=== PATIENT | female | born 1965 | race African-American/Black ===

== ENCOUNTER 2017-08-26 14:25 | Emergency (ER) | payer SELFPAY ==
[2017-08-26 14:31] VITALS: BP 124/76
[2017-08-26] MEDS ORDERED: Paliperidone SUSTENNA* 117 MG/0.75 ML IM ONE (16:29)
[2017-08-26] MEDS ORDERED: Paliperidone SUSTENNA* 156 MG/1 ML IM ONE (17:00)
--- NOTE | 2017-08-26 17:22 | ED ---
Psychiatric Complaint - HPI Summary HPI Summary: Patient presents to the ED with request for an Invega sustenna IM injection. Last dose on 07/22/17 and is to be receiving the medication every month. She is a current patient of [facility]. She was originally prescribed the medication at [facility] in [place] by a psychiatrist. She states last month was the first month she received the IM injection and had no adverse reactions to the medication. Today, she denies SI/HI. Denies any depressive thoughts. She states the medication has been working well. [facility] program called and confirmed she was sent here by Teressa - monik MATERIALS COORDINATOR. She was called and did not answer, however spoke with the construction secretary of [facility] who confirmed she was sent here for such. [facility] was called and stated they had never had her there as an inpatient, but potentially an outpatient MD would have originally prescribed the medication. Denies any pain or other concerns at this time. - History Of Current Complaint Chief Complaint: EDGeneral Time Seen by Provider: 08/26/17 14:33 Hx Obtained From: Patient ?: No Onset/Duration: Sudden Onset Timing: Constant Severity Initially: Mild Severity Currently: Mild Character: Depressed Aggravating Factor(s): Nothing Alleviating Factor(s): Nothing Associated Signs And Symptoms: Positive: Negative Related History: Positive For: Prior Psychiatric Issues - anti-psychotic/anti- depressant - Allergies/Home Medications Allergies/Adverse Reactions: Allergies Allergy/AdvReac Type Severity Reaction Status Date / Time Acetaminophen [From Tylenol] Allergy Hives/Diff. Verified 08/26/17 16:34 Breathing/I tching PMH/Surg Hx/FS Hx/Imm Hx Previously Healthy: Yes - Immunization History Hx Pertussis Vaccination: No Immunizations Up to Date: Unable to Obtain/Confirm Infectious Disease History: No Infectious Disease History: Denies: Traveled Outside the [place] in Last 30 Days - Social History Occupation: Unemployed Lives: Alone Alcohol Use: none since 11/2016 Alcohol Amount: in recovery since november 2016 Hx Substance Use: No Substance Use Type: Reports: Heroin Substance Use Comment - Amount & Last Used: in recovery program since 11/2016 Hx Tobacco Use: No Smoking Status (MU): Former Smoker Review of Systems Constitutional: Negative Eyes: Negative Cardiovascular: Negative Respiratory: Negative Genitourinary: Negative Positive: no symptoms reported, see HPI Musculoskeletal: Negative Neurological: Negative Psychological: Normal All Other Systems Reviewed And Are Negative: Yes Physical Exam Triage Information Reviewed: Yes Vital Signs On Initial Exam: Initial Vitals Temp Pulse Resp BP Pulse Ox 97.4 F 102 20 124/76 100 08/26/17 14:28 08/26/17 14:28 08/26/17 14:28 08/26/17 14:28 08/26/17 14:28 Vital Signs Reviewed: Yes Appearance: Positive: Well-Appearing, Well-Nourished Skin: Positive: Warm, Skin Color Reflects Adequate Perfusion Head/Face: Positive: Normal Head/Face Inspection Eyes: Positive: EOMI, LESA Neck: Positive: Supple, Nontender, No Lymphadenopathy Respiratory/Lung Sounds: Positive: Clear to Auscultation, Breath Sounds Present Cardiovascular: Positive: Normal, RRR, Pulses are Symmetrical in both Upper and Lower Extremities Musculoskeletal: Positive: Normal, Strength/ROM Intact Neurological: Positive: Alert, Oriented to Person Place, Time, Speech Normal Psychiatric: Positive: Normal AVPU Assessment: Alert - Matteson Coma Scale Coma Scale Total: 15 Diagnostics - Vital Signs Vital Signs Temp Pulse Resp BP Pulse Ox 08/26/17 14:28 97.4 F 102 20 124/76 100 - Laboratory Lab Statement: Any lab studies that have been ordered have been reviewed, and results considered in the medical decision making process. Course/Dx - Course Course Of Treatment: Patient presents for an invega sustenna injection: anti- psychotic/anti-depressant. She notes to a monthly dose started last month. Currently we have 156mg and 234mg. She is given the lower dose. She states the medication has been working well. [facility] program called and confirmed she was sent here by Teressa - the MATERIALS COORDINATOR. She was called and did not answer, however spoke with the construction secretary of [facility] who confirmed she was sent here for such. [facility] was called and stated they had never had her there as an inpatient, but potentially an outpatient MD would have originally prescribed the medication. Denies any pain or other concerns at this time. - Differential Dx/Clinical Impression Provider Diagnosis: Medication administered Discharge - Discharge Plan Condition: Stable Disposition: HOME Patient Education Materials: Paliperidone (By injection) Referrals: No Primary Care Phys,NOPCP [Primary Care Provider] - Additional Instructions: Please follow up with your PCP about further injections. If you develop any symptoms, return to the ED immediately
== END 2017-08-26 17:00 | disposition home or self-care (01) ==
LOC: ED 14:25
DX: F32.9 Major depressive disorder, single episode, unspecified (principal); Z02.89 Encounter for other administrative examinations
CPT/HCPCS: 96372; 99281; J2426

== ENCOUNTER 2017-09-19 14:37 | Inpatient (IN) | payer MEDICAID ==
[2017-09-19 15:57] LABS: Urine Bacteria Absent (Absent); Urine Bilirubin Negative (Negative); Urine Glucose Negative (Negative); Urine Nitrite Negative (Negative)
[2017-09-19 16:32] LABS: Hematocrit 36 % (35-47); Hemoglobin 12.1 g/dl (12.0-16.0); Mean Corpuscular HGB Conc 33 g/dl (31-36); Mean Corpuscular Hemoglobin 27 pg (27-31); Mean Corpuscular Volume 81 fL (80-97); Mean Platelet Volume 8 um3 (7.4-10.4); Red Blood Count 4.51 10^6/ul (4.0-5.4); Red Cell Distribution Width 14 % (10.5-15); White Blood Count 6.2 10^3/ul (3.5-10.8)
[2017-09-19 16:47] LABS: ALT 24 U/L (7-52); AST 28 U/L (13-39); Albumin 4.2 g/dL (3.2-5.2); Alkaline Phosphatase 71 U/L (34-104); Anion Gap 6 mmol/L (2-11); BUN/Creatinine Ratio 13.6 (8-20); Blood Urea Nitrogen 11 mg/dL (6-24); CO2 Carbon Dioxide 29 mmol/L (22-32); Calcium 9.8 mg/dL (8.6-10.3); Chloride 99 mmol/L (101-111); EGFR African American 94.8 (>60); EGFR Non-African American 73.7 (>60); Globulin 3.5 g/dL (2-4); Glucose 94 mg/dL (70-100); Sodium 134 mmol/L (133-145); Total Protein 7.7 g/dL (6.4-8.9)
[2017-09-19 17:06] LABS: Acetaminophen < 15 mcg/mL; Alcohol < 10 mg/dL (<10); Salicylate < 2.50 mg/dL (<30)
[2017-09-19 17:11] LABS: Benzodiazepine Urine Screen None Detected (None Detect)
[2017-09-19 17:19] LABS: TSH (Thyroid Stimulating Horm) 0.83 mcIU/mL (0.34-5.60)
--- NOTE | 2017-09-19 21:55 | ED ---
Em Padilla Alfonso, scribed for Jonathan Dasilva MD on 09/19/17 at 1518 . Psychiatric Complaint - HPI Summary HPI Summary: This patient is a 52 F year old F BIBA to [facility] with a chief complaint of SI since 3 days ago. Pt states she tried to cut her fingers and wrists with scissors recently. Symptoms alleviated by nothing. Patient reports insomnia, loss of appetite, auditory hallucinations, and depression. Patient denies any recent substance abuse. She is in rehab for prior heroin abuse. - History Of Current Complaint Time Seen by Provider: 09/19/17 15:06 Hx Obtained From: Patient Timing: Constant Character: Depressed Alleviating Factor(s): Nothing Associated Signs And Symptoms: Positive: Hallucinating - auditory Related History: Positive For: Drug Abuse Counseling - in rehab Has Suicidal: Reports: Thoughts, Demonstrates Gesture, Has Prior Attempt(s) - Allergies/Home Medications Allergies/Adverse Reactions: Allergies Allergy/AdvReac Type Severity Reaction Status Date / Time Acetaminophen [From Tylenol] Allergy Hives/Diff. Verified 08/26/17 16:34 Breathing/I tching Home Medications: Home Medications Buprenorphine HCl-Naloxone HCl [Suboxone 4-1 mg] 1 each PO DAILY 09/19/17 [ History Confirmed 09/19/17] Mirtazapine [Mirtazapine Odt] 30 mg PO BEDTIME 09/19/17 [History Confirmed 09/19] Paliperidone SUSTENNA* [Invega Sustenna*] 234 mg IM Q30D 09/19/17 [History Confirmed 09/19/17] Risperidone [Risperidone ODT-] 1 mg PO BEDTIME 09/19/17 [History Confirmed 09/19] Sertraline HCl [Zoloft] 150 mg PO DAILY 09/19/17 [History Confirmed 09/19/17] busPIRone TAB* [Buspar TAB*] 5 mg PO BID 09/19/17 [History Confirmed 09/19/17] diPHENhydraMINE PO* [Benadryl PO 50 MG CAP*] 50 mg PO Q6HR PRN 09/19/17 [ History Confirmed 09/19/17] hydrOXYzine HCL TAB* [Atarax TAB 50 MG *] 50 mg PO Q6HR PRN 09/19/17 [History Confirmed 09/19/17] PMH/Surg Hx/FS Hx/Imm Hx Previously Healthy: No Cardiovascular History: Reports: Other Cardiovascular Problems/Disorders - Murmur, prolasped valve Psychiatric History: Reports: Hx Depression - Family History Known Family History: Positive: Cardiac Disease, Hypertension - Social History Occupation: Unemployed Alcohol Use: none since 11/2016 Alcohol Amount: in recovery since november 2016 Hx Substance Use: No Substance Use Type: Reports: Heroin Substance Use Comment - Amount & Last Used: in recovery program since 11/2016 Hx Tobacco Use: No Smoking Status (MU): Former Smoker Review of Systems Constitutional: Other - Insomnia Positive: Other - Loss of appetite Positive: Depressed, Other - Auditory hallucinations, SI All Other Systems Reviewed And Are Negative: Yes Physical Exam Triage Information Reviewed: Yes Vital Signs On Initial Exam: Initial Vitals Temp Pulse Resp BP Pulse Ox 98.7 F 102 18 116/72 100 09/19/17 15:25 09/19/17 15:25 09/19/17 15:25 09/19/17 15:25 09/19/17 15:25 Vital Signs Reviewed: Yes Appearance: Positive: Well-Appearing, No Pain Distress Skin: Positive: Skin Color Reflects Adequate Perfusion Head/Face: Positive: Normal Head/Face Inspection Eyes: Positive: EOMI ENT: Positive: Normal ENT inspection Neck: Positive: Nontender, No Lymphadenopathy Respiratory/Lung Sounds: Positive: Clear to Auscultation, Breath Sounds Present Cardiovascular: Positive: RRR. Negative: Murmur Abdomen Description: Positive: Nontender Musculoskeletal: Positive: Strength/ROM Intact Neurological: Positive: Sensory/Motor Intact, Alert, Oriented to Person Place, Time, CN Intact II-III, Speech Normal Psychiatric: Positive: Depressed - Irvin Coma Scale Best Eye Response: 4 - Spontaneous Best Motor Response: 6 - Obeys Commands Best Verbal Response: 5 - Oriented Diagnostics - Vital Signs Vital Signs Temp Pulse Resp BP Pulse Ox 09/19/17 15:25 98.7 F 102 18 116/72 100 - Laboratory Lab Results: Lab Results 09/19/17 Range/Units 15:05 Urine Color Straw Urine Appearance Clear Urine pH 7.0 (5-9) Ur Specific [place] 1.006 L (1.010-1.030) Urine Protein Negative (Negative) Urine Ketones Negative (Negative) Urine Blood 1+ H (Negative) Urine Nitrate Negative (Negative) Urine Bilirubin Negative (Negative) Urine Urobilinogen Negative (Negative) Ur Leukocyte Esterase Negative (Negative) Urine WBC (Auto) Trace(0-5/hpf) (Absent) Urine RBC (Auto) Trace(0-2/hpf) (Absent) Ur Squamous Epith Cells Present H (Absent) Urine Bacteria Absent (Absent) Urine Glucose Negative (Negative) Result Diagrams: 09/19/17 16:15 09/19/17 16:15 Lab Statement: Any lab studies that have been ordered have been reviewed, and results considered in the medical decision making process. - EKG 16:43 Cardiac Rate: NL, Bradycardia EKG Rhythm: Sinus Rhythm - 92 BPM EKG Interpretation: Normal DC, QRS, QT, No STEMI Course/Dx - Course Course Of Treatment: 52 yr old with SI, and will be admitted for further management by psychiatry. - Differential Dx/Clinical Impression Provider Diagnosis: Suicidal ideation Discharge - Discharge Plan Condition: Fair Disposition: [place]ATR[facility] [place]AC[place] [place]: No Primary Care Phys,NOPCP [Medical Doctor] - The documentation as recorded by the Em birch Alfonso accurately reflects the service I personally performed and the decisions made by Brown dueñas Walter, MD.
[2017-09-20] MEDS: Mirtazapine TAB* 15 MG PO SCH (21:16)
[2017-09-20] MEDS: busPIRone TAB* 5 MG PO SCH (21:40)
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
[2017-09-21] MEDS: Buprenorphine/Naloxone 8-2 MG SL TAB* 1 TAB PO SCH (09:12)
[2017-09-21] MEDS: busPIRone TAB* 5 MG PO SCH ×2 (09:13→20:08)
[2017-09-21] MEDS: Sertraline* 50 MG TAB PO SCH (09:13)
[2017-09-21] MEDS: hydrOXYzine HCL TAB* 50 MG PO PRN (20:08)
[2017-09-21] MEDS: Mirtazapine TAB* 15 MG PO SCH (20:08)
[2017-09-22] MEDS ORDERED: Mouth Piece, Nicotine* 1 EACH CARTRIDGE INH PRN (04:30)
[2017-09-22] MEDS: Buprenorphine/Naloxone 8-2 MG SL TAB* 1 TAB PO SCH (08:39)
[2017-09-22] MEDS: busPIRone TAB* 5 MG PO SCH ×2 (08:39→20:10)
[2017-09-22] MEDS: Sertraline* 50 MG TAB PO SCH (08:40)
--- NOTE | 2017-09-22 14:05 | PN ---
Subjective - Subjective Service Type: [id number] Hosp care 15 min low complexity Subjective: Patient noted to be visible in the milieu, isolative, but participates in groups and milieu activities. Patient reports ongoing depressed mood since admission, but she reports feeling safe on the unit. Patient reports primary trigger of her depressed mood is the of her "son's father" who she was with for 32yrs. Patient reports he passed in 03/2016. Patient reports relapsing on opiates since his passing. She transferred symptomatic from the [facility] program where she'd been since 07/2017. Patient reports she has been sober since 11/2016. Patient is in Suboxone therapy. She reports running out of meds 2 weeks ago in the [facility] program as her provider failed to get her Rx refilled as requested by [facility] staff. Patient reports worsening depressive symptoms since, now with associated AHs telling her to cut herself. Patient reports ongoing commanding AHs. She denies SI/HI and VH. Patient reports ongoing poor sleep. Appetite is reported to be wnl. Objective - Appearance Appearance: Thin Framed Dysmorphic Features: No Hygiene: Normal Grooming: Fairly Well Kept - Behavior Psychomotor Activities: Normal Exhibits Abnormal Movement: No - Attitude and Relatedness Attitude and Relatedness: Cooperative Eye Contact: Fair - Speech Quality: Unpressured Latencies: Normal Quantity: Appropriate - Mood Patient's Decription of Mood: "Anxious" - Affect Observed Affect: Depressed Affect Consistent with: Dysphoria - Thought Process Patient's Thought Process: Coherent Thought Content: Yes Passive Wish, No Suicidal Planning, No Homicidal Ideation, No Paranoid Ideation - Sensorium Experiencing Hallucinations: No, Sensorium is Clear Type of Hallucinations: Visual: No, Auditory: Yes - female voices telling her to cut herself, Command: Yes - female voices telling her to cut herself - Level of Consciousness Orientation: Yes Intact, Yes Orientated to Time, Yes Orientated to Place, Yes Orientated to Person - Impulse Control Impulse Control: Intact - Insight and Judgement Insight and Judgement: Fair - Group Participation Particating in Group Activities: Yes - Medication Management Medication Management Adherence: Yes Assessment - Assessment Merits Inpatient Hospitalization: For Immediate Safety, For Stabilization Inpatient DSM-IV Dx: 1. MDD, R, S w/PFs. 2. Opioid use d/o in sustained remission, in Suboxone Tx Plan - Plan Treatment Plan: Name: CHECO SWIFT Birthdate: 1965 [id number] 1. Continue admission to [facility] for safety and symptom mx. 2. Will continue re-started home med regimen. 3. Will re-start Risperdal at 1mg po qhs for psychosis/anxiety/insomnia not re- started on admission. 4. Obtain collateral information from outpt providers. 5. Patient to participate in milieu activities and groups. Continued Medication Management: Continue Outpt Medication Medications: Current Medications Buprenorphine/Naloxone (Suboxone 8-2 Mg Sl Tab*) 0.5 tab.sl PO DAILY [facility] Last Admin: 09/22/17 08:39 Dose: 0.5 tab.sl Buspirone HCl (Buspar Tab*) 5 mg PO BID [facility] Last Admin: 09/22/17 08:39 Dose: 5 mg Device (Nicotine Mouth Piece*) 1 each INH .USE WITH CARTRIDGE PRN PRN Reason: NICOTINE CRAVINGS Hydroxyzine HCl (Atarax Tab*) 50 mg PO Q6H PRN PRN Reason: AGITATION Last Admin: 09/21/17 20:08 Dose: 50 mg Mirtazapine (Remeron Tab*) 30 mg PO BEDTIME [facility] Last Admin: 09/21/17 20:08 Dose: 30 mg Nicotine (Nicotine Inhaler*) 10 mg INH Q2H PRN PRN Reason: NICOTINE CRAVINGS Nicotine Polacrilex (Nicotine Gum*) 2 mg PO Q2H PRN PRN Reason: NICOTINE CRAVINGS Paliperidone Palmitate (Invega Sustenna*) 234 mg IM Q30D [facility] Sertraline HCl (Zoloft*) 150 mg PO DAILY [facility] Last Admin: 09/22/17 08:40 Dose: 150 mg - Discharge Plan Discharge Plan: [facility]
[2017-09-22] MEDS: Nicotine Inhaler* 10 MG AMP INH PRN (18:34)
[2017-09-22] MEDS: Nicotine GUM* 2 MG PO PRN (18:35)
[2017-09-22] MEDS: Mirtazapine TAB* 15 MG PO SCH (20:10)
[2017-09-22] MEDS: risperiDONE TAB* 2 MG PO SCH (20:10)
[2017-09-22] MEDS: hydrOXYzine HCL TAB* 50 MG PO PRN (20:14)
[2017-09-23] MEDS: Sertraline* 50 MG TAB PO SCH (09:07)
[2017-09-23] MEDS: Buprenorphine/Naloxone 8-2 MG SL TAB* 1 TAB PO SCH (09:08)
[2017-09-23] MEDS: busPIRone TAB* 5 MG PO SCH ×2 (09:08→20:09)
[2017-09-23 09:21] LABS: HDL Cholesterol 48.3 mg/dL
--- NOTE | 2017-09-23 14:57 | PN ---
Subjective - Subjective Service Type: [id number] Hosp care 15 min low complexity Subjective: Patient noted to be visible in the milieu, social, pleasant, and participating in groups and milieu activities. Patient reports his mood as "getting better". Patient is more full in affect. She continues to display PMR. Patient' s TP is linear and goal directed. Patient's affect is full and eye contact is wnl. Patient noted by staff to have been in behavioral control. Patient reports improved sleep. Patient has been med compliant and she denies med s/e's. She reports no SI/HI or AH/VH. She reports fair appetite. Patient aware [facility] is holding her bed. Objective - Appearance Appearance: Well Developed/Nourished Dysmorphic Features: No Hygiene: Normal Grooming: Well Kept - Behavior Psychomotor Activities: Abnormal-Decreased Exhibits Abnormal Movement: No - Attitude and Relatedness Attitude and Relatedness: Cooperative Eye Contact: Fair - Speech Quality: Unpressured Latencies: Normal Quantity: Terse - Mood Patient's Decription of Mood: "getting better" - Affect Observed Affect: Depressed Affect Consistent with: Dysphoria - Thought Process Patient's Thought Process: Coherent Thought Content: No Passive Wish, No Suicidal Planning, No Homicidal Ideation, No Paranoid Ideation - Sensorium Experiencing Hallucinations: No, Sensorium is Clear Type of Hallucinations: Visual: No, Auditory: No, Command: No - Level of Consciousness Level of Consciousness: Alert Orientation: Yes Intact, Yes Orientated to Time, Yes Orientated to Place, Yes Orientated to Person - Impulse Control Impulse Control: Intact - Insight and Judgement Insight and Judgement: Fair - Group Participation Particating in Group Activities: Yes - Medication Management Medication Management Adherence: Yes Assessment - Assessment Merits Inpatient Hospitalization: For Immediate Safety, For Stabilization Inpatient DSM-IV Dx: 1. MDD, R, S w/PFs. 2. Opioid use d/o in sustained remission, in Suboxone Tx Plan - Plan Treatment Plan: Name: CHECO SWIFT Birthdate: 1965 [id number] 1. Continue admission to [facility] for safety and symptom mx. 2. Will continue re-started home med regimen. 3. Will re-start Risperdal at 1mg po qhs for psychosis/anxiety/insomnia not re- started on admission. 4. Obtain collateral information from outpt MH providers. 5. Patient reports plan to return to complete [facility] program. 6. Patient to participate in milieu activities and groups. Continued Medication Management: Different Medication Medications: Current Medications Buprenorphine/Naloxone (Suboxone 8-2 Mg Sl Tab*) 0.5 tab.sl PO DAILY [facility] Last Admin: 09/23/17 09:08 Dose: 0.5 tab.sl Buspirone HCl (Buspar Tab*) 5 mg PO BID [facility] Last Admin: 09/23/17 09:08 Dose: 5 mg Device (Nicotine Mouth Piece*) 1 each INH .USE WITH CARTRIDGE PRN PRN Reason: NICOTINE CRAVINGS Last Admin: 09/22/17 18:33 Dose: 1 each Hydroxyzine HCl (Atarax Tab*) 50 mg PO Q6H PRN PRN Reason: AGITATION Last Admin: 09/22/17 20:14 Dose: 50 mg Mirtazapine (Remeron Tab*) 30 mg PO BEDTIME [facility] Last Admin: 09/22/17 20:10 Dose: 30 mg Nicotine (Nicotine Inhaler*) 10 mg INH Q2H PRN PRN Reason: NICOTINE CRAVINGS Last Admin: 09/22/17 18:34 Dose: 10 mg Nicotine Polacrilex (Nicotine Gum*) 2 mg PO Q2H PRN PRN Reason: NICOTINE CRAVINGS Last Admin: 09/22/17 18:35 Dose: 2 mg Paliperidone Palmitate (Invega Sustenna*) 234 mg IM Q30D [facility] Risperidone (Risperdal*) 2 mg PO BEDTIME [facility] Last Admin: 09/22/17 20:10 Dose: 2 mg Sertraline HCl (Zoloft*) 150 mg PO DAILY [facility] Last Admin: 09/23/17 09:07 Dose: 150 mg - Discharge Plan Discharge Plan[facility]
[2017-09-23] MEDS: risperiDONE TAB* 2 MG PO SCH (20:08)
[2017-09-23] MEDS: Mirtazapine TAB* 15 MG PO SCH (20:09)
[2017-09-23] MEDS: Nicotine GUM* 2 MG PO PRN (20:10)
[2017-09-23] MEDS: Nicotine Inhaler* 10 MG AMP INH PRN (20:10)
[2017-09-23] MEDS: hydrOXYzine HCL TAB* 50 MG PO PRN (20:13)
[2017-09-24] MEDS: Sertraline* 50 MG TAB PO SCH (08:35)
[2017-09-24] MEDS: busPIRone TAB* 5 MG PO SCH ×2 (08:35→20:41)
[2017-09-24] MEDS: Buprenorphine/Naloxone 8-2 MG SL TAB* 1 TAB PO SCH (08:57)
[2017-09-24] MEDS: hydrOXYzine HCL TAB* 50 MG PO PRN ×2 (09:14→20:42)
--- NOTE | 2017-09-24 14:08 | PN ---
Subjective - Subjective Service Type: [id number] Hosp care 15 min low complexity Subjective: Patient noted to be visible in the milieu, social, pleasant, and participating in groups and milieu activities. Patient reports her mood as "good". Patient no longer displays PMR, affect is full, and her TP is linear and goal directed. Patient noted by staff to have been in behavioral control. Patient reports good sleep. Patient has been med compliant and she denies med s/e's. She reports no SI/HI or AH/VH. She reports fair appetite. Patient aware [facility] is holding her bed. Objective - Appearance Appearance: Well Developed/Nourished Dysmorphic Features: No Hygiene: Normal Grooming: Well Kept - Behavior Psychomotor Activities: Normal Exhibits Abnormal Movement: No - Attitude and Relatedness Attitude and Relatedness: Cooperative Eye Contact: Good - Speech Quality: Unpressured Latencies: Normal Quantity: Appropriate - Mood Patient's Decription of Mood: "Good" - Affect Observed Affect: Good Affect Consistent with: Euthymia - Thought Process Patient's Thought Process: Coherent Thought Content: No Passive Wish, No Suicidal Planning, No Homicidal Ideation, No Paranoid Ideation - Sensorium Experiencing Hallucinations: No, Sensorium is Clear Type of Hallucinations: Visual: No, Auditory: No, Command: No - Level of Consciousness Level of Consciousness: Alert Orientation: Yes Intact, Yes Orientated to Time, Yes Orientated to Place, Yes Orientated to Person - Impulse Control Impulse Control: Intact - Insight and Judgement Insight and Judgement: Fair - Group Participation Particating in Group Activities: Yes - Medication Management Medication Management Adherence: Yes Assessment - Assessment Merits Inpatient Hospitalization: For Immediate Safety, For Stabilization Inpatient DSM-IV Dx: 1. MDD, R, S w/PFs. 2. Opioid use d/o in sustained remission, in Suboxone Tx Plan - Plan Treatment Plan: Name: CHECO SWIFT Birthdate: 1965 [id number] 1. Continue admission to [facility] for safety and symptom mx. 2. Continue re-started home med regimen. 3. Continue Risperdal at 1mg po qhs for psychosis/anxiety/insomnia. 4. Patient's Invega Sustenna 234mg IM injection due on the is ordered. 5. Obtain collateral information from outpt MH providers. 6. Patient reports plan to return to complete [employer] program. 7. Patient to participate in milieu activities and groups. Continued Medication Management: Different Medication Medications: Current Medications Buprenorphine/Naloxone (Suboxone 8-2 Mg Sl Tab*) 0.5 tab.sl PO DAILY [facility] Last Admin: 09/24/17 08:57 Dose: 0.5 tab.sl Buspirone HCl (Buspar Tab*) 5 mg PO BID [facility] Last Admin: 09/24/17 08:35 Dose: 5 mg Device (Nicotine Mouth Piece*) 1 each INH .USE WITH CARTRIDGE PRN PRN Reason: NICOTINE CRAVINGS Last Admin: 09/22/17 18:33 Dose: 1 each Hydroxyzine HCl (Atarax Tab*) 50 mg PO Q6H PRN PRN Reason: AGITATION Last Admin: 09/24/17 09:14 Dose: 50 mg Mirtazapine (Remeron Tab*) 30 mg PO BEDTIME [facility] Last Admin: 09/23/17 20:09 Dose: 30 mg Nicotine (Nicotine Inhaler*) 10 mg INH Q2H PRN PRN Reason: NICOTINE CRAVINGS Last Admin: 09/23/17 20:10 Dose: 10 mg Nicotine Polacrilex (Nicotine Gum*) 2 mg PO Q2H PRN PRN Reason: NICOTINE CRAVINGS Last Admin: 09/23/17 20:10 Dose: 2 mg Paliperidone Palmitate (Invega Sustenna*) 234 mg IM Q30D [facility] Risperidone (Risperdal*) 2 mg PO BEDTIME [facility] Last Admin: 09/23/17 20:08 Dose: 2 mg Sertraline HCl (Zoloft*) 150 mg PO DAILY [facility] Last Admin: 09/24/17 08:35 Dose: 150 mg - Discharge Plan Discharge Plan: Drug[facility]Alcohol [facility]hab [facility]
[2017-09-24] MEDS: risperiDONE TAB* 2 MG PO SCH (20:41)
[2017-09-24] MEDS: Mirtazapine TAB* 15 MG PO SCH (20:41)
[2017-09-25] MEDS: Sertraline* 50 MG TAB PO SCH (09:19)
[2017-09-25] MEDS: busPIRone TAB* 5 MG PO SCH ×2 (09:19→20:00)
[2017-09-25] MEDS: Buprenorphine/Naloxone 8-2 MG SL TAB* 1 TAB PO SCH (09:20)
[2017-09-25] MEDS: hydrOXYzine HCL TAB* 50 MG PO PRN ×2 (09:20→20:01)
--- NOTE | 2017-09-25 12:15 | PN ---
Subjective - Subjective Service Type: [id number] Hosp care 15 min low complexity Subjective: Patient noted to be visible in the milieu, social, pleasant, and participating in groups and milieu activities. Patient continues to display improvement in mood, energy level, engagement in therapy, and her social interaction with staff and peers. Patient no longer displays PMR, affect is full, and her TP is linear and goal directed. Patient noted by staff to have been in behavioral control. Patient reports good sleep. Patient has been med compliant and she denies med s/ e's. She reports no SI/HI or AH/VH. She reports fair appetite. Patient aware [facility] is holding her bed. Patient will receive her scheduled Invega Sustenna 234 IM injection tomorrow. She reports feeling ready for discharge in am. Objective - Appearance Appearance: Well Developed/Nourished Dysmorphic Features: No Hygiene: Normal Grooming: Well Kept - Behavior Psychomotor Activities: Normal Exhibits Abnormal Movement: No - Attitude and Relatedness Attitude and Relatedness: Cooperative Eye Contact: Good - Speech Quality: Unpressured Latencies: Normal Quantity: Appropriate - Mood Patient's Decription of Mood: "Okay" - Affect Observed Affect: Fair Affect Consistent with: Euthymia - Thought Process Patient's Thought Process: Coherent Thought Content: No Passive Wish, No Suicidal Planning, No Homicidal Ideation, No Paranoid Ideation - Sensorium Experiencing Hallucinations: No, Sensorium is Clear Type of Hallucinations: Visual: No, Auditory: No, Command: No - Level of Consciousness Level of Consciousness: Alert Orientation: No Intact, No Orientated to Time, No Orientated to Place, No Orientated to Person - Impulse Control Impulse Control: Intact - Insight and Judgement Insight and Judgement: Fair - Group Participation Particating in Group Activities: Yes - Medication Management Medication Management Adherence: Yes Assessment - Assessment Merits Inpatient Hospitalization: For Immediate Safety, For Stabilization Inpatient DSM-IV Dx: 1. MDD, R, S w/PFs. 2. Opioid use d/o in sustained remission, in Suboxone Tx Plan - Plan Treatment Plan: Name: CHECO SWIFT Birthdate: 1965 [id number] 1. Continue admission to [facility] for safety and symptom mx. 2. Continue re-started home med regimen. 3. Continue Risperdal at 1mg po qhs for psychosis/anxiety/insomnia. 4. Patient's Invega Sustenna 234mg IM injection due on the is ordered. 5. Obtain collateral information from outpt MH providers. 6. Patient reports plan to return to complete [facility] program. 7. Patient to participate in milieu activities and groups. Continued Medication Management: Continue Outpt Medication Medications: Current Medications Buprenorphine/Naloxone (Suboxone 8-2 Mg Sl Tab*) 0.5 tab.sl PO DAILY [facility] Last Admin: 09/25/17 09:20 Dose: 0.5 tab.sl Buspirone HCl (Buspar Tab*) 5 mg PO BID [facility] Last Admin: 09/25/17 09:19 Dose: 5 mg Device (Nicotine Mouth Piece*) 1 each INH .USE WITH CARTRIDGE PRN PRN Reason: NICOTINE CRAVINGS Last Admin: 09/22/17 18:33 Dose: 1 each Hydroxyzine HCl (Atarax Tab*) 50 mg PO Q6H PRN PRN Reason: AGITATION Last Admin: 09/25/17 09:20 Dose: 50 mg Mirtazapine (Remeron Tab*) 30 mg PO BEDTIME [facility] Last Admin: 09/24/17 20:41 Dose: 30 mg Nicotine (Nicotine Inhaler*) 10 mg INH Q2H PRN PRN Reason: NICOTINE CRAVINGS Last Admin: 09/23/17 20:10 Dose: 10 mg Nicotine Polacrilex (Nicotine Gum*) 2 mg PO Q2H PRN PRN Reason: NICOTINE CRAVINGS Last Admin: 09/23/17 20:10 Dose: 2 mg Paliperidone Palmitate (Invega Sustenna*) 234 mg IM Q30D [facility] Risperidone (Risperdal*) 2 mg PO BEDTIME [facility] Last Admin: 09/24/17 20:41 Dose: 2 mg Sertraline HCl (Zoloft*) 150 mg PO DAILY [facility] Last Admin: 09/25/17 09:19 Dose: 150 mg - Discharge Plan Discharge Plan: Drug/Alcohol Rehab
[2017-09-25] MEDS: Nicotine GUM* 2 MG PO PRN (15:24)
[2017-09-25] MEDS: Nicotine Inhaler* 10 MG AMP INH PRN (15:25)
[2017-09-25] MEDS: Diclofenac Sodium EC TAB* 25 MG PO SCH (17:41)
[2017-09-25] MEDS: Mirtazapine TAB* 15 MG PO SCH (20:00)
[2017-09-25] MEDS: risperiDONE TAB* 2 MG PO SCH (20:00)
[2017-09-26] MEDS ORDERED: Paliperidone SUSTENNA* 234 MG/1.5 ML IM SCH ×2 (08:00→21:00)
[2017-09-26] MEDS: Buprenorphine/Naloxone 8-2 MG SL TAB* 1 TAB PO SCH (09:07)
[2017-09-26] MEDS: Sertraline* 50 MG TAB PO SCH (09:07)
[2017-09-26] MEDS: Diclofenac Sodium EC TAB* 25 MG PO SCH (09:08)
[2017-09-26] MEDS: busPIRone TAB* 5 MG PO SCH ×2 (09:09→20:09)
[2017-09-26] MEDS: Nicotine GUM* 2 MG PO PRN ×2 (13:57→21:37)
--- NOTE | 2017-09-26 19:07 | PN ---
Subjective - Subjective Service Type: [id number] Hosp care 15 min low complexity Subjective: [employer] Machinist met with patient during attending's absence. She presents as dysphoric with flat affect. She is attending groups and meals, otherwise primarily seclusive to herself. She reports gaining much from programming on unit and would prefer to return to [facility] on friday. Objective - Appearance Appearance: Well Developed/Nourished Dysmorphic Features: Yes Hygiene: Normal Grooming: Well Kept - Behavior Psychomotor Activities: Normal Exhibits Abnormal Movement: No - Attitude and Relatedness Attitude and Relatedness: Cooperative Eye Contact: Good - Speech Quality: Unpressured Latencies: Normal Quantity: Appropriate - Mood Patient's Decription of Mood: "Okay" - Affect Observed Affect: Good Affect Consistent with: Euthymia - Thought Process Patient's Thought Process: Coherent, Goal Directed Thought Content: No Passive Wish, No Suicidal Planning, No Homicidal Ideation, No Paranoid Ideation - Sensorium Experiencing Hallucinations: No, Sensorium is Clear Type of Hallucinations: Visual: No, Auditory: No, Command: No - Level of Consciousness Level of Consciousness: Alert Orientation: Yes Intact, Yes Orientated to Time, Yes Orientated to Place, Yes Orientated to Person - Impulse Control Impulse Control: Intact - Insight and Judgement Insight and Judgement: Fair - Group Participation Particating in Group Activities: Yes - Medication Management Medication Management Adherence: Yes Assessment - Assessment Merits Inpatient Hospitalization: For Immediate Safety, For Stabilization, Consolidate Improvements, For Discharge Planning Inpatient DSM-IV Dx: 1. MDD, R, S w/PFs. 2. Opioid use d/o in sustained remission, in Suboxone Tx Plan - Plan Treatment Plan: Name: CHECO SWIFT Birthdate: 1965 [id number] Continue acute intensive psychiatric treatment. Continue previous medications. Safety checks q30min and allow staff pass. Continued Medication Management: Continue Outpt Medication Medications: Current Medications Buprenorphine/Naloxone (Suboxone 8-2 Mg Sl Tab*) 0.5 tab.sl PO DAILY [facility] Last Admin: 09/26/17 09:07 Dose: 0.5 tab.sl Buspirone HCl (Buspar Tab*) 5 mg PO BID [facility] Last Admin: 09/26/17 09:09 Dose: 5 mg Device (Nicotine Mouth Piece*) 1 each INH .USE WITH CARTRIDGE PRN PRN Reason: NICOTINE CRAVINGS Last Admin: 09/22/17 18:33 Dose: 1 each Diclofenac Sodium (Voltaren Ec Tab*) 25 mg PO DAILY [facility] Last Admin: 09/26/17 09:08 Dose: 25 mg Hydroxyzine HCl (Atarax Tab*) 50 mg PO Q6H PRN PRN Reason: AGITATION Last Admin: 09/25/17 20:01 Dose: 50 mg Mirtazapine (Remeron Tab*) 30 mg PO BEDTIME [facility] Last Admin: 09/25/17 20:00 Dose: 30 mg Nicotine (Nicotine Inhaler*) 10 mg INH Q2H PRN PRN Reason: NICOTINE CRAVINGS Last Admin: 09/25/17 15:25 Dose: 10 mg Nicotine Polacrilex (Nicotine Gum*) 2 mg PO Q2H PRN PRN Reason: NICOTINE CRAVINGS Last Admin: 09/26/17 13:57 Dose: 2 mg Paliperidone Palmitate (Invega Sustenna*) 234 mg IM Q30D [facility] Last Admin: 09/26/17 11:01 Dose: 234 mg Risperidone (Risperdal*) 2 mg PO BEDTIME [facility] Last Admin: 09/25/17 20:00 Dose: 2 mg Sertraline HCl (Zoloft*) 150 mg PO DAILY [facility] Last Admin: 09/26/17 09:07 Dose: 150 mg - Discharge Plan Discharge Plan: Drug/Alcohol Rehab Outpatient Program: [facility]
[2017-09-26] MEDS: Mirtazapine TAB* 15 MG PO SCH (20:08)
[2017-09-26] MEDS: risperiDONE TAB* 2 MG PO SCH (20:09)
[2017-09-26] MEDS: hydrOXYzine HCL TAB* 50 MG PO PRN (20:10)
[2017-09-27] MEDS: Buprenorphine/Naloxone 8-2 MG SL TAB* 1 TAB PO SCH (08:49)
[2017-09-27] MEDS: busPIRone TAB* 5 MG PO SCH ×2 (08:49→20:58)
[2017-09-27] MEDS: Diclofenac Sodium EC TAB* 25 MG PO SCH (08:49)
[2017-09-27] MEDS: Sertraline* 50 MG TAB PO SCH (08:50)
[2017-09-27] MEDS: hydrOXYzine HCL TAB* 50 MG PO PRN (08:52)
--- NOTE | 2017-09-27 18:39 | PN ---
Subjective - Subjective Service Type: [id number] Hosp care 15 min low complexity Subjective: Patient reports that she is 80% better with regards to her mood although looks severely apathetic with poor eye contact. Preoccupied with the of her of 32 years and has intrussive thoughts of the loss and why that happened. Says he had uncontrolble HTN and he refused to take meds or go for his appointments. Denies hallucinations, delusions or SI/HI. Objective - Appearance Appearance: Healthy Appearing Dysmorphic Features: No Hygiene: Normal Grooming: Fairly Well Kept - Behavior Psychomotor Activities: Abnormal-Decreased - Attitude and Relatedness Attitude and Relatedness: Appropriate Eye Contact: Poor - Speech Quality: Unpressured Latencies: Normal Quantity: Appropriate - Mood Patient's Decription of Mood: "Okay" - Affect Observed Affect: Depressed - Thought Process Patient's Thought Process: Coherent, Goal Directed Thought Content: No Passive Wish, No Suicidal Planning, No Homicidal Ideation, No Paranoid Ideation - Sensorium Experiencing Hallucinations: No, Sensorium is Clear Type of Hallucinations: Visual: No, Auditory: No, Command: No - Level of Consciousness Level of Consciousness: Alert Orientation: Yes Intact, Yes Orientated to Time, Yes Orientated to Place, Yes Orientated to Person - Impulse Control Impulse Control: Intact - Insight and Judgement Insight and Judgement: Fair - Group Participation Particating in Group Activities: Yes - Medication Management Medication Management Adherence: Yes Assessment - Assessment Merits Inpatient Hospitalization: Consolidate Improvements, For Discharge Planning Inpatient DSM-IV Dx: 1. MDD, R, S w/PFs. 2. Opioid use d/o in sustained remission, in Suboxone Tx Plan - Plan Treatment Plan: Name: CHECO SWIFT Birthdate: 1965 [id number] Continued Medication Management: Continue Outpt Medication Medications: Current Medications Buprenorphine/Naloxone (Suboxone 8-2 Mg Sl Tab*) 0.5 tab.sl PO DAILY [facility] Last Admin: 09/27/17 08:49 Dose: 0.5 tab.sl Buspirone HCl (Buspar Tab*) 5 mg PO BID [facility] Last Admin: 09/27/17 08:49 Dose: 5 mg Device (Nicotine Mouth Piece*) 1 each INH .USE WITH CARTRIDGE PRN PRN Reason: NICOTINE CRAVINGS Last Admin: 09/22/17 18:33 Dose: 1 each Diclofenac Sodium (Voltaren Ec Tab*) 25 mg PO DAILY [facility] Last Admin: 09/27/17 08:49 Dose: 25 mg Hydroxyzine HCl (Atarax Tab*) 50 mg PO Q6H PRN PRN Reason: AGITATION Last Admin: 09/27/17 08:52 Dose: 50 mg Mirtazapine (Remeron Tab*) 30 mg PO BEDTIME [facility] Last Admin: 09/26/17 20:08 Dose: 30 mg Nicotine (Nicotine Inhaler*) 10 mg INH Q2H PRN PRN Reason: NICOTINE CRAVINGS Last Admin: 09/25/17 15:25 Dose: 10 mg Nicotine Polacrilex (Nicotine Gum*) 2 mg PO Q2H PRN PRN Reason: NICOTINE CRAVINGS Last Admin: 09/26/17 21:37 Dose: 2 mg Paliperidone Palmitate (Invega Sustenna*) 234 mg IM Q30D [facility] Last Admin: 09/26/17 11:01 Dose: 234 mg Risperidone (Risperdal*) 2 mg PO BEDTIME [facility] Last Admin: 09/26/17 20:09 Dose: 2 mg Sertraline HCl (Zoloft*) 150 mg PO DAILY [facility] Last Admin: 09/27/17 08:50 Dose: 150 mg - Discharge Plan Discharge Plan: Drug/Alcohol Rehab
[2017-09-27] MEDS: risperiDONE TAB* 2 MG PO SCH (20:59)
[2017-09-27] MEDS: Mirtazapine TAB* 15 MG PO SCH (20:59)
[2017-09-28] MEDS: Sertraline* 50 MG TAB PO SCH (08:46)
[2017-09-28] MEDS: Diclofenac Sodium EC TAB* 25 MG PO SCH (08:46)
[2017-09-28] MEDS: hydrOXYzine HCL TAB* 50 MG PO PRN ×2 (08:46→21:08)
[2017-09-28] MEDS: busPIRone TAB* 5 MG PO SCH ×2 (08:47→20:12)
[2017-09-28] MEDS ORDERED: Ibuprofen TAB* 400 MG PO PRN (13:24)
[2017-09-28] MEDS: Mirtazapine TAB* 15 MG PO SCH (20:12)
[2017-09-28] MEDS: risperiDONE TAB* 2 MG PO SCH (20:12)
[2017-09-28] MEDS: Nicotine GUM* 2 MG PO PRN (21:09)
[2017-09-29 08:34] VITALS: BP 123/74
[2017-09-29] MEDS: Sertraline* 50 MG TAB PO SCH (09:07)
[2017-09-29] MEDS: Diclofenac Sodium EC TAB* 25 MG PO SCH (09:07)
[2017-09-29] MEDS: busPIRone TAB* 5 MG PO SCH (09:07)
[2017-09-29] MEDS ORDERED: Buprenorphine/Naloxone 8-2 MG SL TAB* 1 TAB SL SCH (11:00)
--- NOTE | 2017-09-29 11:12 | DS ---
Subjective - Subjective Service Types: [address] [facility] [place] Day Mgmt simple under 30 min Subjective: Patient noted to be lying in her bed most of today. She reports some fatique, but denies issues. Over the weekend, patient noted to be visible in the milieu, pleasant, social with peers and attending groups. Patient reports ongoing benefit to mood and easy agitation. Patient denies med s/e's. Patient reports feeling ready for discharge. Patient is A&Ox4 , linear and GD in TP, and future oriented in TC regarding resuming her drug rehab program. Patient again denies SI/HI and AH/VH. Patient is psychiatrically stable. Discharge plan has been discussed and patient is amenable and acknowledges understanding. Patient instructed to call the crisis hotline, 911, or self present to a local ED if SI recurs. Patient was amenable and acknowledged understanding of community supports. Patient will be discharged back to the [facility] inpatient rehab program. Objective - Appearance Appearance: Well Developed/Nourished Dysmorphic Features: No Hygiene: Normal Grooming: Well Kept - Behavior Psychomotor Activities: Normal Exhibits Abnormal Movement: No - Attitude and Relatedness Attitude and Relatedness: Cooperative Eye Contact: Good - Speech Quality: Unpressured Latencies: Normal Quantity: Appropriate - Mood Patient's Decription of Mood: "Okay" - Affect Observed Affect: Fair Affect Consistent with: Euthymia - Thought Process Patient's Thought Process: Coherent Thought Content: No Passive Wish, No Suicidal Planning, No Homicidal Ideation, No Paranoid Ideation - Sensorium Experiencing Hallucinations: No, Sensorium is Clear Type of Hallucinations: Visual: No, Auditory: No, Command: No - Level of Consciousness Level of Consciousness: Agitated Orientation: Yes Intact, Yes Orientated to Time, Yes Orientated to Place, Yes Orientated to Person - Impulse Control Impulse Control: Intact - Insight and Judgement Insight and Judgement: Fair - Group Participation Particating in Group Activities: Yes - Medication Management Medication Management Adherence: Yes Treatment Course & Assessment Clinical Course & Impression: HOSPITAL COURSE: On admission day #2, day this provider took over as primary on this case, patient noted to be lying in her bed most of today. She reports some fatique, but denies issues. Over the weekend, patient noted to bePatient noted to be visible in the milieu, isolative, but participates in groups and milieu activities. Patient reports ongoing depressed mood since admission, but she reports feeling safe on the unit. Patient reports primary trigger of her depressed mood is the of her "son's father"who she was with for 32yrs. Patient reports he passed in 03/2016. Patient reports relapsing on opiates since his passing. She transferred symptomatic from the [facility] program where she'd been since 07/2017. Patient reports she has been sober since 11/2016. Patient is in Suboxone therapy. She reports running out of meds 2 weeks ago in the [facility] program as her provider failed to get her Rx refilled as requested by [facility] staff. Patient reports worsening depressive symptoms since, now with associated AHs telling her to cut herself. Patient reports ongoing commanding AHs. She denies SI/HI and VH. Patient reports ongoing poor sleep. Appetite is reported to be wnl. On admission day#3, patient noted to be visible in the milieu, social, pleasant , and participating in groups and milieu activities. Patient reports his mood as "getting better". Patient is more full in affect. She continues to display PMR. Patient' s TP is linear and goal directed. Patient's affect is full and eye contact is wnl. Patient noted by staff to have been in behavioral control. Patient reports improved sleep. Patient has been med compliant and she denies med s/e's. She reports no SI/HI or AH/VH. She reports fair appetite. Patient aware [facility] is holding her bed. On admission day#5, patient noted to be visible in the milieu, social, pleasant , and participating in groups and milieu activities. Patient continues to display improvement in mood, energy level, engagement in therapy, and her social interaction with staff and peers. Patient no longer displays PMR, affect is full, and her TP is linear and goal directed. Patient noted by staff to have been in behavioral control. Patient reports good sleep. Patient has been med compliant and she denies med s/ e's. She reports no SI/HI or AH/VH. She reports fair appetite. Patient aware [facility] is holding her bed. Patient will receive her scheduled Invega Sustenna 234 IM injection tomorrow. She reports feeling ready for discharge in am. On admission day#6, day of discharge, patient noted to be lying in her bed most of today. She reports some fatique, but denies issues. Over the weekend, patient was visible in the milieu, pleasant, social with peers and attending groups. Patient denies med s/e's. Patient reports feeling ready for discharge. Patient is A&Ox4, linear and GD in TP, and future oriented in TC regarding resuming her drug rehab program. Patient again denies SI/HI and AH/VH. Patient is psychiatrically stable. Discharge plan has been discussed and patient is amenable and acknowledges understanding. Patient instructed to call the crisis hotline, 911, or self present to a local ED if SI recurs. Patient was amenable and acknowledged understanding of community supports. Patient will be discharged back to the [facility] inpatient rehab program. PERTINENT LABS: Laboratory Tests 09/19/17 09/19/17 09/19/17 15:05 15:05 16:15 WBC RBC Hgb Hct MCV MCH MCHC RDW Plt Count MPV Neut % (Auto) Lymph % (Auto) [place] % (Auto) Eos % (Auto) Baso % (Auto) Absolute Neuts (auto) Absolute Lymphs (auto) Absolute Monos (auto) Absolute Eos (auto) Absolute Basos (auto) Absolute Nucleated RBC Nucleated RBC % Sodium 134 Potassium 4.0 Chloride 99 L Carbon Dioxide 29 Anion Gap 6 BUN 11 Creatinine 0.81 Est GFR ( Amer) 94.8 Est GFR (Non-Af Amer) 73.7 BUN/Creatinine Ratio 13.6 Glucose 94 Hemoglobin A1c Calcium 9.8 Total Bilirubin 0.40 AST 28 ALT 24 Alkaline Phosphatase 71 Total Protein 7.7 Albumin 4.2 Globulin 3.5 Albumin/Globulin Ratio 1.2 Triglycerides Cholesterol LDL Cholesterol HDL Cholesterol TSH 0.83 Urine Color Straw Urine Appearance Clear Urine pH 7.0 Ur Specific [place] 1.006 L Urine Protein Negative Urine Ketones Negative Urine Blood 1+ H Urine Nitrate Negative Urine Bilirubin Negative Urine Urobilinogen Negative Ur Leukocyte Esterase Negative Urine WBC (Auto) Trace(0-5/hpf) Urine RBC (Auto) Trace(0-2/hpf) Ur Squamous Epith Cells Present H Urine Bacteria Absent Urine Glucose Negative Salicylates < 2.50 Urine Opiates Screen None detected Acetaminophen < 15 Ur Barbiturates Screen None detected Ur Phencyclidine Scrn None detected Ur Amphetamines Screen None detected U Benzodiazepines Scrn None detected Urine Cocaine Screen None detected U Cannabinoids Screen None detected Serum Alcohol < 10 09/19/17 09/19/17 09/23/17 16:15 16:15 08:01 WBC 6.2 RBC 4.51 Hgb 12.1 Hct 36 MCV 81 MCH 27 MCHC 33 RDW 14 Plt Count 247 MPV 8 Neut % (Auto) 64.1 Lymph % (Auto) 24.9 L [place] % (Auto) 9.1 H Eos % (Auto) 1.2 Baso % (Auto) 0.7 Absolute Neuts (auto) 4.0 Absolute Lymphs (auto) 1.5 Absolute Monos (auto) 0.6 Absolute Eos (auto) 0.1 Absolute Basos (auto) 0 Absolute Nucleated RBC 0 Nucleated RBC % 0.1 Sodium Potassium Chloride Carbon Dioxide Anion Gap BUN Creatinine Est GFR ( Amer) Est GFR (Non-Af Amer) BUN/Creatinine Ratio Glucose Hemoglobin A1c 5.7 H Calcium Total Bilirubin AST ALT Alkaline Phosphatase Total Protein Albumin Globulin Albumin/Globulin Ratio Triglycerides 91 Cholesterol 235 LDL Cholesterol 169 HDL Cholesterol 48.3 TSH Urine Color Urine Appearance Urine pH Ur Specific [place] Urine Protein Urine Ketones Urine Blood Urine Nitrate Urine Bilirubin Urine Urobilinogen Ur Leukocyte Esterase Urine WBC (Auto) Urine RBC (Auto) Ur Squamous Epith Cells Urine Bacteria Urine Glucose Salicylates Urine Opiates Screen Acetaminophen Ur Barbiturates Screen Ur Phencyclidine Scrn Ur Amphetamines Screen U Benzodiazepines Scrn Urine Cocaine Screen U Cannabinoids Screen Serum Alcohol 09/23/17 08:01 WBC RBC Hgb Hct MCV MCH MCHC RDW Plt Count MPV Neut % (Auto) Lymph % (Auto) [place] % (Auto) Eos % (Auto) Baso % (Auto) Absolute Neuts (auto) Absolute Lymphs (auto) Absolute Monos (auto) Absolute Eos (auto) Absolute Basos (auto) Absolute Nucleated RBC Nucleated RBC % Sodium Potassium Chloride Carbon Dioxide Anion Gap BUN Creatinine Est GFR ( Amer) Est GFR (Non-Af Amer) BUN/Creatinine Ratio Glucose Hemoglobin A1c 5.7 H Calcium Total Bilirubin AST ALT Alkaline Phosphatase Total Protein Albumin Globulin Albumin/Globulin Ratio Triglycerides Cholesterol LDL Cholesterol HDL Cholesterol TSH Urine Color Urine Appearance Urine pH Ur Specific [place] Urine Protein Urine Ketones Urine Blood Urine Nitrate Urine Bilirubin Urine Urobilinogen Ur Leukocyte Esterase Urine WBC (Auto) Urine RBC (Auto) Ur Squamous Epith Cells Urine Bacteria Urine Glucose Salicylates Urine Opiates Screen Acetaminophen Ur Barbiturates Screen Ur Phencyclidine Scrn Ur Amphetamines Screen U Benzodiazepines Scrn Urine Cocaine Screen U Cannabinoids Screen Serum Alcohol Consultants: none Discharge Meds: Home Medications Medication Instructions Recorded Confirmed Type Buprenorphine HCl-Naloxone HCl 1 each PO DAILY 09/19/17 09/19/17 History [Suboxone 4-1 mg] Mirtazapine [Mirtazapine Odt] 30 mg PO BEDTIME 09/19/17 09/19/17 History Paliperidone SUSTENNA* [Invega 234 mg IM Q30D 09/19/17 09/19/17 History Sustenna*] Risperidone [Risperidone ODT-] 1 mg PO BEDTIME 09/19/17 09/19/17 History Sertraline HCl [Zoloft] 150 mg PO DAILY 09/19/17 09/19/17 History busPIRone TAB* [Buspar TAB*] 5 mg PO BID 09/19/17 09/19/17 History diPHENhydraMINE PO* [Benadryl PO 50 mg PO Q6HR PRN 09/19/17 09/19/17 History 50 MG CAP*] hydrOXYzine HCL TAB* [Atarax TAB 50 mg PO Q6HR PRN 09/19/17 09/19/17 History 50 MG *] Follow-Up: Appt. for within the next 2 weeks scheduled by SW with provider. Clear for Discharge: Adequate Clinical Respons, Acceptable Safety Profile Inpatient DSM-IV Dx: 1. MDD, R, S w/PFs. 2. Opioid use d/o in sustained remission, in Suboxone Tx Discharge Planning - Discharge Planning Discharge Plan: Drug/Alcohol Rehab - [facility] Recommendations for Continuing Care: Medication Management, Substance Abuse Counseling - [facility] Medications: Current Medications Buprenorphine/Naloxone (Suboxone 8-2 Mg Sl Tab*) 0.5 tab.sl SL DAILY [facility] Buspirone HCl (Buspar Tab*) 5 mg PO BID [facility] Last Admin: 09/29/17 09:07 Dose: 5 mg Device (Nicotine Mouth Piece*) 1 each INH .USE WITH CARTRIDGE PRN PRN Reason: NICOTINE CRAVINGS Last Admin: 09/22/17 18:33 Dose: 1 each Diclofenac Sodium (Voltaren Ec Tab*) 25 mg PO DAILY [facility] Last Admin: 09/29/17 09:07 Dose: Not Given Hydroxyzine HCl (Atarax Tab*) 50 mg PO Q6H PRN PRN Reason: AGITATION Last Admin: 09/28/17 21:08 Dose: 50 mg Ibuprofen (Motrin Tab*) 400 mg PO Q6H PRN PRN Reason: PAIN Mirtazapine (Remeron Tab*) 30 mg PO BEDTIME [facility] Last Admin: 09/28/17 20:12 Dose: 30 mg Nicotine (Nicotine Inhaler*) 10 mg INH Q2H PRN PRN Reason: NICOTINE CRAVINGS Last Admin: 09/25/17 15:25 Dose: 10 mg Nicotine Polacrilex (Nicotine Gum*) 2 mg PO Q2H PRN PRN Reason: NICOTINE CRAVINGS Last Admin: 09/28/17 21:09 Dose: 2 mg Paliperidone Palmitate (Invega Sustenna*) 234 mg IM Q30D [facility] Last Admin: 09/26/17 11:01 Dose: 234 mg Risperidone (Risperdal*) 2 mg PO BEDTIME [facility] Last Admin: 09/28/17 20:12 Dose: 2 mg Sertraline HCl (Zoloft*) 150 mg PO DAILY [facility] Last Admin: 09/29/17 09:07 Dose: 150 mg Discharge Planning: Prescriptions provided for discharge [x] Yes [] No Follow up care details as per social work arrangements. Patient response to discharge plan: [] eager for discharge [x] agreeable with discharge plan [] ambivalent about discharge [] disagrees with discharge today
== END 2017-09-29 13:25 | DRG 751 ==
LOC: ED 14:37 → BSU 22:30
PROVIDERS: ADMIT Psychiatry & Neurology Psychiatry; ATTEND Psychiatry & Neurology Psychiatry
DX: F33.3 Major depressive disorder, recurrent, severe with psychotic symptoms (principal); R45.851 Suicidal ideations; R40.2362 Coma scale, best motor response, obeys commands, at arrival to emergency department; R40.2142 Coma scale, eyes open, spontaneous, at arrival to emergency department; F11.21 Opioid dependence, in remission; F41.9 Anxiety disorder, unspecified; R40.2252 Coma scale, best verbal response, oriented, at arrival to emergency department; Z91.5 Personal history of self-harm; Z82.49 Family history of ischemic heart disease and other diseases of the circulatory system; Z56.0 Unemployment, unspecified; Z87.891 Personal history of nicotine dependence
CPT/HCPCS: 36415; 80053; 80061; 80307; 80320; 80329; 81003; 81015; 83036; 84443; 85025; 93005; 99222; 99231; 99238; A9270-GY; G0480